=== PATIENT | female | born 1980 | race Caucasian/White ===

== ENCOUNTER 2017-09-01 12:43 | Observation (INO) | payer MEDICAID ==
[~2017-09-01] VITALS: Ht 152.4 cm; Wt 103.7 kg
[~2017-09-01 12:43] MED LIST: ALEVE 220MG220 MG PO; AMBIEN 10MG10 MG PO; AMOXICILLIN 50500 MG PO; CELEXA 20MG20 MG/TAB PO; CELEXA40 MG PO; KLONOPIN 1MG1 MG PO; KLONOPIN2 MG PO; LASIX 20MG TABL20 MG PO; LITHIUM 30300 MG/CAP PO; NORCO 325 MG-51 TAB PO; PERCOCET 325 MG1 TA2 PO; TYLENOL 325MG325 MG PO; ULTRAM 50MG TAB50 MG PO; ZOFRAN8 MG PO
[2017-09-01] MEDS ORDERED: INDERAL 20MG20 MG PO (13:27)
[2017-09-01] MEDS ORDERED: MINIPRESS2 MG (13:28)
[2017-09-01 13:41] LABS: BASO % 0.3 % (0.0-2.0); EOS # 0.1 (0.0-0.7); EOS % 1.9 % (0-4.0); GRAN # 5.4 (1.4-6.5); GRAN % 73.4 % (42.2-75.2); HEMATOCRIT 39.6 % (37.0-47.0); HEMOGLOBIN 13.2 g/dl (12.5-16.0); LYMPH # 1.3 (1.2-3.4); LYMPH % 17.7 % (20.0-51.0); MEAN CELL VOLUME 94 fl (80.0-100.0); MEAN CORPUSCULAR HEMOGLOBIN 31 pg (27.0-31.0); MEAN CORPUSCULAR HGB CONC 33 g/dl (33.0-37.0); MEAN PLATELET VOLUME 9.4 fl (7.4-10.4); MONO # 0.5 (0.1-0.6); MONO % 6.3 % (1.7-9.3); PLATELET COUNT 209 K/mm3 (130-400); RED BLOOD COUNT 4.22 M/mm3 (4.10-5.30); WHITE BLOOD COUNT 7.3 K/mm3 (4.8-10.8)
[2017-09-01 14:24] LABS: ADJUSTED CALCIUM 9.5 mg/dL (8.4-10.2); ALBUMIN 4.1 gm/dL (3.5-5.0); BILIRUBIN,TOTAL 0.5 mg/dL (0.0-1.0); CALCIUM 9.6 mg/dL (8.4-10.2); CREATININE, serum 0.71 mg/dL (0.52-1.25); TOTAL PROTEIN 7.1 gm/dL (6.4-8.2)
[2017-09-01 17:48] VITALS: BP 119/68; PULSE 71; TEMP 99.2
[2017-09-01 20:43] VITALS: BP 114/55; PULSE 80; TEMP 98.9
[2017-09-01 20:48] LABS: CALCIUM 8.8 mg/dL (8.4-10.2); POTASSIUM 3.6 mmol/L (3.4-5.0)
[2017-09-01 20:49] LABS: CREATININE, serum 0.72 mg/dL (0.52-1.25)
[2017-09-01 20:50] LABS: LITHIUM 1.4 mmol/L (0.6-1.2)
[2017-09-02 00:31] VITALS: BP 115/57; PULSE 84; TEMP 99.4
[2017-09-02 03:43] VITALS: BP 115/74; PULSE 78; TEMP 99
[2017-09-02 07:51] VITALS: BP 107/49; PULSE 72; TEMP 97.9
[2017-09-02 08:03] LABS: CALCIUM 8.5 mg/dL (8.4-10.2); CREATININE, serum 0.74 mg/dL (0.52-1.25); POTASSIUM 4.2 mmol/L (3.4-5.0)
[2017-09-02 08:15] LABS: LITHIUM 0.9 mmol/L (0.6-1.2)
[2017-09-02] MEDS ORDERED: ULTRAM 50MG TAB50 MG PO (09:26)
[2017-09-02] MEDS ORDERED: ZOFRAN 4MG T4 MG/TAB PO (09:26)
== END 2017-09-02 12:36 | disposition home or self-care (01) ==
LOC: COL.ER 12:43 → MEDICAL 15:17 → COL.ER 15:17 → MEDICAL 15:17
PROVIDERS: Emergency Medicine; Physician Assistant
DX: R11.2 Nausea with vomiting, unspecified (principal); T43.595A Adverse effect of other antipsychotics and neuroleptics, initial encounter; F31.9 Bipolar disorder, unspecified; R51 Headache; I50.9 Heart failure, unspecified; F41.9 Anxiety disorder, unspecified; F20.9 Schizophrenia, unspecified; O99.43 Diseases of the circulatory system complicating the puerperium; I11.0 Hypertensive heart disease with heart failure; O16.5 Unspecified maternal hypertension, complicating the puerperium; F43.10 Post-traumatic stress disorder, unspecified; F17.210 Nicotine dependence, cigarettes, uncomplicated
CPT/HCPCS: 99222-AI; G0378; J1650; J1885; J2405; J2550; J7030; J7040

== ENCOUNTER 2017-09-12 11:05 | Emergency (ER) | payer MEDICAID ==
[~2017-09-12] VITALS: Ht 152.4 cm; Wt 104.5 kg
[~2017-09-12 11:05] MED LIST changes: +INDERAL 20MG20 MG PO; +MINIPRESS2 MG; +ZOFRAN 4MG T4 MG/TAB PO
[2017-09-12 11:11] VITALS: BP 121/79; PULSE 88; TEMP 98.7
[2017-09-12] MEDS ORDERED: ULTRAM 50MG TAB50 MG PO (11:47)
[2017-09-12] MEDS ORDERED: AMOXICILLIN 50500 MG PO (11:47)
== END 2017-09-12 12:30 | disposition home or self-care (01) ==
LOC: COL.ER 11:05
DX: K02.9 Dental caries, unspecified (principal); F41.9 Anxiety disorder, unspecified; F31.9 Bipolar disorder, unspecified; F43.10 Post-traumatic stress disorder, unspecified; I10 Essential (primary) hypertension; F17.210 Nicotine dependence, cigarettes, uncomplicated